=== PATIENT | female | born 2000 | race Hispanic/Latino ===

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

== ENCOUNTER 2022-10-07 11:53 | Emergency (ER) | payer OTHER, SELFPAY | END 2022-10-07 12:36 | disposition home or self-care (01) | LOC: ERS 11:53 | DX: L05.01 Pilonidal cyst with abscess (principal); J02.9 Acute pharyngitis, unspecified | CPT/HCPCS: 99282 ==

== ENCOUNTER 2022-11-08 12:14 | Outpatient (CLI) | payer OTHER | END 2022-11-08 12:15 | disposition home or self-care (01) | LOC: BICULT 12:14 | PROVIDERS: ATTEND Family Medicine | DX: Z34.02 Encounter for supervision of normal first pregnancy, second trimester (principal); Z3A.32 32 weeks gestation of pregnancy | CPT/HCPCS: 76805 ==